=== PATIENT | male | born 1985 | race Caucasian/White ===

== ENCOUNTER 2019-12-07 00:32 | Emergency (ER) | payer OTHER ==
[~2019-12-07] VITALS: Ht 177.8 cm; Wt 70.8 kg
--- NOTE | 2019-12-07 01:13 | Emergency Room Report ---
History of Present Illness General Chief Complaint: Abdominal Pain Source: Patient Present Illness HPI Disclaimer: Please note that this report is being documented using [employer] OTR technology. This can lead to erroneous entry secondary to incorrect interpretation by the dictating instrument. HPI: 34-year-old male presents for evaluation of abdominal pain. He reports epigastric pain for 3 days that is burning and tearing. Does not radiate. No exacerbating relieving symptoms. He denies significant vomiting but reports nausea. Reports chronic loose stools and intermittent blood in his stool for years. He is scheduled to have a colonoscopy next week. He denies fever, chills, chest pain, palpitations, shortness of breath. Patient was infected with COVID-19 2 months ago fully recovered. Denies any symptoms of shortness of breath, cough or congestion today. Denies prior abdominal pain. Sober for 5 years. Denies drug use. PMH: Anxiety PSH: Denied Allergies: Denied Social Hx: Sober 5 years, prior alcohol use Allergies: Coded Allergies: No Known Allergies (Unverified , 12/07/19) COVID-19 Screening Contact w/high risk pt: No Experienced COVID-19 symptoms?: No COVID-19 Testing performed [employer]: Yes COVID-19 Screening: Positive COVID-19 COVID-19 Testing Source: 2 months ago Review of Systems All Other Systems: negative except mentioned in HPI Physical Exam Vital Signs Date Time Temp Pulse Resp B/P (MAP) Pulse Ox O2 Delivery O2 Flow Rate FiO2 12/07/19 00:33 98.6 72 18 122/72 (89) 99 Room Air General: Awake and alert, no acute distress HEENT: NC/AT. EOMI. Cardiovascular: RRR. S1 and S2 normal. No murmur appreciated Resp: Normal work of breathing. No cough, wheezing or crackles appreciated Abdomen: Abdomen is soft, nondistended. Tenderness palpation in the epigastrium. No significant tenderness in the right upper or left upper quadrants. Negative Azul's. No guarding or rebound. No tenderness in lower quadrants. Skin: Intact. No abrasions, laceration or rash over the exposed skin MSK: Normal tone and bulk. Moving all extremities. No obvious deformity. Neuro: Awake and alert. Mentating appropriately. Medical Decision Making Diagnostic Impression: Primary Impression: Diverticulosis Additional Impressions: Gastritis GERD (gastroesophageal reflux disease) ER Course 34-year-old male presenting for evaluation of abdominal pain for 3 days. Differential includes not limited to gastritis, gastroenteritis, pancreatitis, cholecystitis, appendicitis, inflammatory bowel disease, diverticulosis, diverticulitis, AAA, aortoenteric fistula. IV line established. Patient treated with antiemetics. He declined narcotic pain medication as he is living sober for 5 years. Labs and CTA ordered to evaluate for AAA given the tearing sensation he is describing along with intermittent GI bleeding which could represent a herald bleed. Labs returned within normal limits. CTA of the abdomen did not show any aneurysmal dilation or dissection. There was finding of diverticulosis without diverticulitis which could explain the patient's multiple years of painless rectal bleeding. No other significant findings id entified. The patient's burning epigastric discomfort likely consistent with gastritis or peptic ulcer disease. Will start on antacids. GI cocktail given in the ED with improvement in symptoms. Copy of his CT and lab results provided to patient. He is scheduled for colonoscopy next week and I encouraged him to ask regarding EGD to evaluate for peptic ulcer disease. Instructed to return with new or worsening symptoms. Laboratory Tests Test 12/07/19 01:10 12/07/19 03:30 White Blood Count 7.5 K/UL (4.8-10.8) Red Blood Count 5.09 M/UL (4.70-6.10) Hemoglobin 15.1 G/DL (14.2-18.0) Hematocrit 44.9 % (42.0-52.0) Mean Corpuscular Volume 88 FL (80-99) Mean Corpuscular Hemoglobin 29.7 PG (27.0-31.0) Mean Corpuscular Hemoglobin Concent 33.7 G/DL (32.0-36.0) Red Cell Distribution Width 13.2 % (11.6-14.8) Platelet Count 170 K/UL (150-450) Mean Platelet Volume 10.1 FL (6.5-10.1) Neutrophils (%) (Auto) 48.0 % (45.0-75.0) Lymphocytes (%) (Auto) 40.4 % (20.0-45.0) Monocytes (%) (Auto) 8.6 % (1.0-10.0) Eosinophils (%) (Auto) 2.2 % (0.0-3.0) Basophils (%) (Auto) 0.8 % (0.0-2.0) Sodium Level 140 MMOL/L (136-145) Potassium Level 3.9 MMOL/L (3.5-5.1) Chloride Level 104 MMOL/L (98-107) Carbon Dioxide Level 28 MMOL/L (21-32) Anion Gap 8 mmol/L (5-15) Blood Urea Nitrogen 12 mg/dL (7-18) Creatinine 1.0 MG/DL (0.55-1.30) Estimated Glomerular Filtration Rate > 60 mL/min (>60) Glucose Level 150 MG/DL (74-106) H Calcium Level 8.7 MG/DL (8.5-10.1) Total Bilirubin 0.5 MG/DL (0.2-1.0) Aspartate Amino Transferase (AST) 29 U/L (15-37) Alanine Aminotransferase (ALT) 32 U/L (12-78) Alkaline Phosphatase 52 U/L (46-116) Total Protein 7.5 G/DL (6.4-8.2) Albumin 4.2 G/DL (3.4-5.0) Globulin 3.3 g/dL Albumin/Globulin Ratio 1.3 (1.0-2.7) Lipase 117 U/L (73-393) Serum Alcohol < 3 mg/dL Urine Color Pale yellow Urine Appearance Clear Urine pH 6.5 (4.5-8.0) Urine Specific [place] 1.005 (1.005-1.035) Urine Protein Negative (NEGATIVE) Urine Glucose (UA) Negative (NEGATIVE) Urine Ketones Negative (NEGATIVE) Urine Blood Negative (NEGATIVE) Urine Nitrite Negative (NEGATIVE) Urine Bilirubin Negative (NEGATIVE) Urine Urobilinogen Normal MG/DL (0.0-1.0) Urine Leukocyte Esterase Negative (NEGATIVE) CT/MRI/US Diagnostic Results CT/MRI/US Diagnostic Results : Impression Final Report EXAM: CT Angiography Abdomen With Intravenous Contrast CLINICAL HISTORY: ABD PAIN TECHNIQUE: Axial computed tomographic angiography images of the abdomen with intravenous contrast. CTDI is 57.00 mGy and DLP is 332.60 mGy-cm. One or more of the f ollowing dose reduction techniques were used: automated exposure control, adjustment of the mA and/or kV according to patient size, use of iterative reconstruction technique. MIP reconstructed images were created and reviewed. COMPARISON: No relevant prior studies available. FINDINGS: Aorta: Non-aneurysmal abdominal aorta. No dissection. Celiac trunk and mesenteric arteries: No acute findings. No occlusion or significant stenosis. Renal arteries: No acute findings. No occlusion or significant stenosis. Lung bases: Unremarkable. No mass. No consolidation. Liver: Unremarkable. No mass. Gallbladder and bile ducts: Contracted gallbladder. No calcified stones. No ductal dilation. Pancreas: Mild atrophy of the pancreatic head. No ductal dilation. Spleen: Unremarkable. No splenomegaly. Adrenals: Unremarkable. No mass. Kidneys and ureters: Unremarkable. No hydronephrosis. No solid mass. Stomach and bowel: Mild diverticulosis, without acute diverticulitis. No small bowel obstruction. Appendix: Normal appendix. Intraperitoneal space: Unremarkable. No significant fluid collection. No free air. Bones/joints: No acute fracture. No dislocation. Soft tissues: Small fat-containing bilateral inguinal hernias, left greater than right. Lymph nodes: Unremarkable. No enlarged lymph nodes. IMPRESSION: No aneurysm or dissection of the abdominal aorta. Mild diverticulosis, without acute diverticulitis. No small bowel obstruction. Normal appendix. Radiologist: Eladio Riggs MD Electronically Signed: 12/07/19 03:18 Study ready at 03:09 and initial results transmitted at 03:18 Last Vital Signs Date Time Temp Pulse Resp B/P (MAP) Pulse Ox O2 Delivery O2 Flow Rate FiO2 12/07/19 00:33 98.6 72 18 122/72 (89) 99 Room Air Disposition: HOME, SELF-CARE Condition: Improved Scripts Famotidine* (Pepcid 20mg tablet*) 20 Mg Tablet 20 MG ORAL DAILY for Gerd, #30 TAB 0 Refills Prov: Howard Roa MD 12/07/19 Referrals: [facility],REFERRING (PCP) Howard Roa MD Dec 07, 2019 01:12
[2019-12-07] MEDS ORDERED: Morphine Sulfate 4mg/ml Inj (IV USE ONLY) ONE (01:15)
[2019-12-07] MEDS ORDERED: Morphine Sulfate 4mg/ml Inj (IV USE ONLY) IVP ONE (01:15)
[2019-12-07] MEDS ORDERED: Omnipaque 350 100ml vial INJ PRN (01:15)
[2019-12-07 01:17] LABS: BASOPHILS % (AUTO) 0.8 % (0.0-2.0); EOSINOPHILS % (AUTO) 2.2 % (0.0-3.0); HEMATOCRIT 44.9 % (42.0-52.0); HEMOGLOBIN 15.1 G/DL (14.2-18.0); LYMPHOCYTES % (AUTO) 40.4 % (20.0-45.0); MEAN CORPUSCULAR VOLUME 88 FL (80-99); MONOCYTES % (AUTO) 8.6 % (1.0-10.0); PLATELET COUNT 170 K/UL (150-450); RED BLOOD COUNT 5.09 M/UL (4.70-6.10); RED CELL DISTRIBUTION WIDTH 13.2 % (11.6-14.8); WHITE BLOOD COUNT 7.5 K/UL (4.8-10.8)
[2019-12-07 01:26] LABS: ANION GAP 8 mmol/L (5-15); BLOOD UREA NITROGEN 12 mg/dL (7-18); CALCIUM 8.7 MG/DL (8.5-10.1); CARBON DIOXIDE 28 MMOL/L (21-32); CHLORIDE 104 MMOL/L (98-107); POTASSIUM 3.9 MMOL/L (3.5-5.1); SODIUM 140 MMOL/L (136-145)
[2019-12-07 01:30] LABS: ALANINE AMINOTRANSFERASE 32 U/L (12-78); ALBUMIN 4.2 G/DL (3.4-5.0); ALBUMIN/GLOBULIN RATIO 1.3 (1.0-2.7); ALKALINE PHOSPHATASE 52 U/L (46-116); ASPARTATE AMINO TRANSFERASE 29 U/L (15-37); BILIRUBIN,TOTAL 0.5 MG/DL (0.2-1.0)
[2019-12-07 01:45] VITALS: BP 126/71
[2019-12-07 02:30] VITALS: BP 117/68
--- NOTE | 2019-12-07 03:19 | Diagnostic Imaging Report ---
EXAM: CT Angiography Abdomen With Intravenous Contrast CLINICAL HISTORY: ABD PAIN TECHNIQUE: Axial computed tomographic angiography images of the abdomen with intravenous contrast. CTDI is 57.00 mGy and DLP is 332.60 mGy-cm. One or more of the following dose reduction techniques were used: automated exposure control, adjustment of the mA and/or kV according to patient size, use of iterative reconstruction technique. MIP reconstructed images were created and reviewed. COMPARISON: No relevant prior studies available. FINDINGS: Aorta: Non-aneurysmal abdominal aorta. No dissection. Celiac trunk and mesenteric arteries: No acute findings. No occlusion or significant stenosis. Renal arteries: No acute findings. No occlusion or significant stenosis. Lung bases: Unremarkable. No mass. No consolidation. Liver: Unremarkable. No mass. Gallbladder and bile ducts: Contracted gallbladder. No calcified stones. No ductal dilation. Pancreas: Mild atrophy of the pancreatic head. No ductal dilation. Spleen: Unremarkable. No splenomegaly. Adrenals: Unremarkable. No mass. Kidneys and ureters: Unremarkable. No hydronephrosis. No solid mass. Stomach and bowel: Mild diverticulosis, without acute diverticulitis. No small bowel obstruction. Appendix: Normal appendix. Intraperitoneal space: Unremarkable. No significant fluid collection. No free air. Bones/joints: No acute fracture. No dislocation. Soft tissues: Small fat-containing bilateral inguinal hernias, left greater than right. Lymph nodes: Unremarkable. No enlarged lymph nodes. IMPRESSION: No aneurysm or dissection of the abdominal aorta. Mild diverticulosis, without acute diverticulitis. No small bowel obstruction. Normal appendix.
[2019-12-07 03:35] VITALS: BP 119/63
[2019-12-07 03:38] LABS: APPEARANCE,URINE CLEAR; BILIRUBIN, URINE NEGATIVE (NEGATIVE); COLOR,URINE PALE YELLOW; GLUCOSE, URINE (UA) NEGATIVE (NEGATIVE); KETONES,URINE NEGATIVE (NEGATIVE); LEUKOCYTE ESTERASE ,URINE NEGATIVE (NEGATIVE); NITRITE,URINE NEGATIVE (NEGATIVE); PH,URINE 6.5 (4.5-8.0); PROTEIN,URINE NEGATIVE (NEGATIVE); UROBILINOGEN,URINE NORMAL MG/DL (0.0-1.0)
[2019-12-07] MEDS ORDERED: FAMOTIDINE20 MG ORAL (03:43)
[2019-12-07] MEDS ORDERED: Mylanta II UD 30ml ORAL ONE (03:45)
[2019-12-07] MEDS ORDERED: Dicyclomine HCl 10mg/5ml oral soln ORAL ONE (03:45)
[2019-12-07] MEDS ORDERED: Lidocaine 2% Visc 15ml soln ORAL ONE (03:45)
[2019-12-07] MEDS ORDERED: Ketorolac 30mg Inj IV ONE (03:45)
[2019-12-07 04:00] VITALS: BP 119/63
== END 2019-12-07 04:00 | disposition home or self-care (01) ==
LOC: EMR 00:53
DX: K57.90 Diverticulosis of intestine, part unspecified, without perforation or abscess without bleeding (principal); K29.70 Gastritis, unspecified, without bleeding; K21.9 Gastro-esophageal reflux disease without esophagitis; Z86.19 Personal history of other infectious and parasitic diseases
CPT/HCPCS: 36415; 74175; 80053; 81003; 83690; 85025; 96374; 96375; 99284; G0480; J1885; Q9967; S0028